=== PATIENT | female | born 2000 | race African-American/Black ===

== ENCOUNTER 2021-09-10 08:46 | Emergency (ER) | payer OTHER, SELFPAY ==
[2021-09-10 09:00] VITALS: BP 112/69; PULSE 64; RESP 16; TEMP 36.4; O2SAT 100
--- NOTE | 2021-09-10 09:06 | ED.EYEPROB ---
HPI - Eye Problem General Chief complaint: Eye Problems Stated complaint: Possible [place] [facility] Time Seen by Provider: 09/10/21 09:06 Source: patient Mode of arrival: ambulatory Limitations: no limitations History of Present Illness HPI Narrative: 21-year-old female presents with complaint of photophobia, clear drainage, left eye irritation for 1 day. Today she is having similar symptoms to right eye. Reports that she wears contacts daily and wears them to sleep. Also reports that she wears fake eyelashes, remove them yesterday. Denies eye injury. All systems reviewed and negative except as noted above. Review of Systems Review of Systems: CONSTITUTIONAL: Denies fever, chills, or sweats. EYES: Denies visual changes. Reports eye redness, clear drainage, photophobia. ENT: Denies rhinorrhea, congestion, sore throat, or otalgia. CARDIOVASCULAR: Denies chest pain, palpitations, or edema. RESPIRATORY: Denies cough or dyspnea. GASTROINTESTINAL: Denies abdominal pain, nausea, vomiting, or diarrhea. GENITOURINARY: Denies dysuria or hematuria. SKIN: Denies rash or itching. MUSCULOSKELETAL: Denies back pain, joint pain, or myalgia. NEUROLOGIC: Denies headache, numbness, or weakness. PSYCHIATRIC: Denies anxiety or depression. All other systems reviewed are negative, except as documented in HPI. PMFSH Comments At time of signature, agree with nursing past medical, surgical, social and family history. There is no relevant family history pertinent to the presenting complaint. Exam Narrative: GENERAL: This is a well-nourished, well-developed patient, in no apparent distress. HEAD: normocephalic, atraumatic. EYES: PERRL. Sclera erythematous bilaterally. Clear drainage bilaterally. Fluorescein strip to both eyes, under Nichols lamp corneal abrasion to both eyes. EARS: External ears normal NOSE: External nose normal NECK: Neck supple, non-tender without lymphadenopathy, masses or thyromegaly. CARDIOVASCULAR: Regular rate and rhythm without murmurs, gallops, or rubs. RESPIRATORY: Clear to auscultation. Breath sounds equal bilaterally. No wheezes, rales, or rhonchi. SKIN: warm, Dry, intact with no suspicious lesions or rash, good texture and turgor. NEURO: awake, alert, and oriented to person, place and time. There were no obvious focal neurologic abnormalities. EXTREMITIES: No joint tenderness, effusion, or edema noted. Course Course Level of Care: Express Care Visit Vital Signs Vital signs: Vital Signs Temperature 36.4 C L 09/10/21 09:00 Pulse Rate 64 09/10/21 09:00 Respiratory Rate 16 09/10/21 09:00 Blood Pressure 112/69 09/10/21 09:00 Pulse Oximetry 100 09/10/21 09:00 Oxygen Delivery Room Air 09/10/21 09:00 Temperature 36.4 C L 09/10/21 09:00 Pulse Rate 64 09/10/21 09:00 Respiratory Rate 16 09/10/21 09:00 Blood Pressure 112/69 09/10/21 09:00 Pulse Oximetry 100 09/10/21 09:00 Oxygen Delivery Room Air 09/10/21 09:00 Reviewed MDM - Eye Problem MDM Narrative Medical decision making narrative: Patient is aware of diagnosis, understands and agrees to treatment plan. Anticipatory guidance given. Patient agrees to follow-up as directed and is aware of reasons to seek care at the emergency department. Portions of this record may have been created with voice recognition software Differential Diagnosis Differential diagnosis: Likely corneal abrasion, conjunctivitis and corneal ulcer Discharge Plan Discharge Clinical Impression: Bilateral corneal abrasions Patient Disposition: Home, Self-Care Condition: Stable Instructions: Antibiotic Form, Corneal Abrasion (ED) Additional Instructions: Use antibiotic ointment as prescribed. Throw away contacts. Do not start new pair until symptoms have resolved. For any worsening of symptoms, see an customer success specialist. Prescriptions: New erythromycin 5 mg/gram (0.5 %) ointment 1 applic EACH EYE QID Qty: 3.5 0RF Follow-up/Referrals:
== END 2021-09-10 09:18 | disposition home or self-care (01) ==
PROVIDERS: Emergency Provider Nurse Practitioner Family
DX: S05.02XA Injury of conjunctiva and corneal abrasion without foreign body, left eye, initial encounter (principal); S05.01XA Injury of conjunctiva and corneal abrasion without foreign body, right eye, initial encounter; X58.XXXA Exposure to other specified factors, initial encounter
CPT/HCPCS: 99203; A9270; G0463